=== PATIENT | female | born 1970 | race Caucasian/White ===

== ENCOUNTER 2020-09-12 04:53 | Emergency (ER) | payer BC ==
[~2020-09-12] VITALS: Ht 162.6 cm; Wt 113.0 kg
[~2020-09-12 04:53] MED LIST: CARAFATE1 GM PO; CELEXA40 MG PO; CIPRO500 MG OR; CLARITIN10 M1 PO; HYDROCHLOROT12.5 MG PO; KEFLEX500 M1 PO; LORTAB 5 OR; MAXZIDE1 TAB OR; NAPROSYN500 MG OR; NAPROSYN500 MG PO; NEXIUM20 M1 PO; NEXIUM40 M1 OR; NO HOME MEDS; NO MEDS; PERCOCET 5/325M1 TAB OR; PREVACID15 M3 PO; PREVACID30 M1 PO; PREVACID30 M2 PO; PREVACID30 M3 PO; REGLAN10 MG OR; REGLAN5 MG OR; ROBITUSSIN AC10 ML PO; ULTRAM50 M1 PO; VICODIN ES1 TAB OR; ZOFRAN ODT4 MG PO
[2020-09-12 05:47] LABS: HEMATOCRIT 43.5 % (37.0-47.0); IMMATURE GRANULOCYTES 0.1 % (0.0-5.0); MEAN CELL VOLUME 91.2 fL CALC (80.0-100.0); MEAN CORPUSCULAR HGB 29.4 pG CALC (26.0-32.0); MEAN CORPUSCULAR HGB CONC 32.2 g/dL CAL (32.0-36.0); NEUT# 3.98 thou/uL (2.00-7.15); RED BLOOD COUNT 4.77 mill/uL (4.20-5.60); RED CELL DISTRI WIDTH 13.1 % (11.5-15.5)
[2020-09-12 06:07] LABS: ALBUMIN 4.2 g/dL (3.2-5.0); ALKALINE PHOSPHATASE 73 u/l (38-126); ANION GAP 8 (6-22 (CALC)); BUN 14 mg/dL (7-17); BUN/CREATININE RATIO 24 (12-20 (CALC)); CARBON DIOXIDE 28 mmol/l (22-30); CHLORIDE 105 mmol/l (95-108); CREATININE 0.6 mg/dL (0.5-1.0); GFR > 60 ML/MIN (>=60 (CALC)); GFR FOR AFR.AMER. > 60 ML/MIN (>=60 (CALC)); POTASSIUM 4.1 mmol/l (3.5-5.1); SGOT/AST 22 u/l (14-36); SODIUM 137 mmol/l (137-146); TOTAL PROTEIN 6.9 g/dL (6.3-8.2)
[2020-09-12 06:09] LABS: BILIRUBIN, TOTAL 0.4 mg/dL (0.0-1.4)
[2020-09-12 06:10] LABS: D-DIMER 0.2 mg/L (0.19-0.60)
[2020-09-12] MEDS ORDERED: TORADOL PO (06:48)
[2020-09-12 06:57] VITALS: BP 141/71
== END 2020-09-12 06:57 | disposition home or self-care (01) | DRG 554 ==
LOC: ED 04:53
PROVIDERS: Family Medicine
DX: M17.0 Bilateral primary osteoarthritis of knee (principal); F17.210 Nicotine dependence, cigarettes, uncomplicated

== ENCOUNTER 2020-09-21 16:52 | Emergency (ER) | payer BC ==
[~2020-09-21] VITALS: Ht 162.6 cm; Wt 113.6 kg
[~2020-09-21 16:52] MED LIST changes: +TORADOL PO
[2020-09-21 17:30] VITALS: BP 138/83
[2020-09-21] MEDS ORDERED: TRAMADOL HYDROC50 M1 PO (19:06)
== END 2020-09-21 19:12 | disposition home or self-care (01) | DRG 554 ==
LOC: ED 16:52
DX: M17.12 Unilateral primary osteoarthritis, left knee (principal); E66.9 Obesity, unspecified; F17.210 Nicotine dependence, cigarettes, uncomplicated

== ENCOUNTER 2022-01-09 06:56 | Emergency (ER) | payer OTHER, BC ==
[~2022-01-09] VITALS: Ht 162.6 cm; Wt 116.0 kg
[~2022-01-09 06:56] MED LIST changes: +TRAMADOL HYDROC50 M1 PO
[2022-01-09 07:06] VITALS: BP 152/98
[2022-01-09 07:40] VITALS: BP 140/71
[2022-01-09 08:29] VITALS: BP 140/71
[2022-01-09] MEDS ORDERED: CEPHALEXIN500 MG PO (08:34)
== END 2022-01-09 08:37 | disposition home or self-care (01) | DRG 605 ==
LOC: ED 06:56
PROC: 0HQFXZZ Repair Right Hand Skin, External Approach (ICD-10-PCS; principal; 2022-01-09)
DX: S61.214A Laceration without foreign body of right ring finger without damage to nail, initial encounter (principal); W45.8XXA Other foreign body or object entering through skin, initial encounter; Y93.89 Activity, other specified; Y92.89 Other specified places as the place of occurrence of the external cause; Y99.0 Civilian activity done for income or pay

== ENCOUNTER 2022-12-23 13:55 | Emergency (ER) | payer BC ==
[~2022-12-23] VITALS: Ht 162.6 cm; Wt 115.7 kg
[~2022-12-23 13:55] MED LIST changes: +CEPHALEXIN500 MG PO
[2022-12-23 14:06] VITALS: BP 136/66
[2022-12-23 14:14] LABS: BASO% 0.1 % (0-3); EOS% 2.6 % (0-8); HEMATOCRIT 42.3 % (37.0-47.0); HEMOGLOBIN 13.7 g/dl (12.0-16.0); IMMATURE GRANULOCYTES 0.1 % (0.0-5.0); LYMPH% 31.1 % (15-41); MEAN CORPUSCULAR HGB 30.1 pG CALC (26.0-32.0); MEAN CORPUSCULAR HGB CONC 32.4 g/dL CAL (32.0-36.0); MONO% 6.9 % (2-13); NEUT# 4.78 thou/uL (2.00-7.15); NEUT% 59.2 % (42-76); RED BLOOD COUNT 4.55 mill/uL (4.20-5.60); RED CELL DISTRI WIDTH 12.9 % (11.5-15.5)
[2022-12-23 14:16] VITALS: BP 130/71
[2022-12-23 14:43] LABS: ALBUMIN 4.5 g/dL (3.2-5.0); ALKALINE PHOSPHATASE 72 u/l (38-126); ANION GAP 10 (6-22 (CALC)); BUN 11 mg/dL (7-17); BUN/CREATININE RATIO 20 (12-20 (CALC)); CARBON DIOXIDE 26 mmol/l (22-30); CHLORIDE 104 mmol/l (95-108); CREATININE 0.5 mg/dL (0.5-1.0); GFR FOR AFR.AMER. > 60 ML/MIN (>=60 (CALC)); GFR OTHER RACES > 60 ML/MIN (>=60 (CALC)); SGOT/AST 27 u/l (14-36); SODIUM 136 mmol/l (137-146); TOTAL PROTEIN 7.5 g/dL (6.3-8.2)
[2022-12-23 14:46] VITALS: BP 122/67
[2022-12-23 14:47] LABS: BILIRUBIN, TOTAL 0.2 mg/dL (0.02-1.3)
[2022-12-23 15:01] VITALS: BP 112/51
[2022-12-23] MEDS ORDERED: GABAPENTIN300 M2 PO (15:29)
[2022-12-23 15:38] VITALS: BP 120/66
[2022-12-23 15:40] VITALS: BP 120/66
== END 2022-12-23 15:45 | disposition home or self-care (01) | DRG 74 ==
LOC: ED 13:55
PROVIDERS: Emergency Medicine
DX: G62.9 Polyneuropathy, unspecified (principal); R07.9 Chest pain, unspecified; Z20.822 Contact with and (suspected) exposure to COVID-19